=== PATIENT | female | born 1990 | race Caucasian/White ===

== ENCOUNTER 2018-10-05 08:00 | Inpatient (IN) | payer OTHER ==
[~2018-10-05] VITALS: Ht 170.2 cm; Wt 80.4 kg
[2018-10-05 08:58] VITALS: Ht 170.2 cm; Wt 80.4 kg
[2018-10-05 08:59] VITALS: BP 111/64; PULSE 64; RESP 20
[2018-10-05] MEDS ORDERED: PREN1TAB13 PO (09:01)
[2018-10-05] MEDS ORDERED: LIDOCAINE 1% (MPF) 30 ML INJ INJ PRN (09:30)
[2018-10-05] MEDS ORDERED: OXYCODONE/ASPIRIN (4.88/325) TAB PO PRN (09:30)
[2018-10-05] MEDS ORDERED: METHYLERGONOVINE 0.2 MG INJ IM PRN (09:30)
[2018-10-05] MEDS ORDERED: BUTORPHANOL 2 MG INJ IV PRN (09:30)
[2018-10-05] MEDS ORDERED: IBUPROFEN 600 MG TAB PO PRN (09:30)
[2018-10-05] MEDS ORDERED: MISOPROSTOL 200 MCG TAB PR PRN (09:30)
[2018-10-05] MEDS ORDERED: OXYTOCIN 30 UNITS/LR 500 ML IV SCH ×2 (09:30)
[2018-10-05] MEDS ORDERED: OXYTOCIN 30 UNITS/LR 500 ML IV PRN (09:30)
[2018-10-05] MEDS ORDERED: CARBOPROST 250 MCG INJ IM PRN (09:30)
[2018-10-05] MEDS ORDERED: AMPICILLIN 2 GM/NS (PMX) 100 ML IVPB ONE (10:30)
[2018-10-05] MEDS: LACTATED RINGER'S 1,000 ML IV SCH ×2 (10:44→19:03)
[2018-10-05] MEDS: MISOPROSTOL 50 MCG CAPSULE PO SCH ×2 (10:47→17:24)
[2018-10-05] MEDS: AMPICILLIN 1 GM/NS (PMX) 50 ML IVPB SCH ×3 (13:29→21:36)
[2018-10-05] MEDS ORDERED: DEXTROSE 5%-LR 1,000 ML IV PRN (18:00)
[2018-10-05] MEDS ORDERED: LACTATED RINGER'S 1,000 ML IV PRN (19:30)
--- NOTE | 2018-10-05 20:24 | HP ---
Date/Time of Note Date/Time of Note DATE: 10/05/18 TIME: 20:16 OB - History Hx of Present Free Text/Dictation 28 years old with single intrauterine at 39 weeks and 6 days with a ROSA of 10/06/2018 admitted for induction of labor for A1 gestational diabetes. She states good movement. She denies nausea, vomiting, shortness of breath, chest pain, headache, visual changes, vaginal bleeding or LOF. Risk factors: A1 gestational diabetes - Bilateral renal pyelectasis Chief Complaint: Admission for induction of labor Estimated Due Date: Oct 06, 2018 : 3 Para: 1 Spontaneous : 1 Therapeutic : 0 Care: Good Care Ultrasounds: Normal mid trimester US Obstetrical Complications: Gestational Diabetes Medical Complications: None Past Family/Social History * Past Medical, Surgical, Family and Obstetric Histories reviewed from chart. Blood Type: O+ Rubella: immune RPR/VDRL: Negative GBS Status: Positive HBsAG: Negative OB Admission Exam Vital Signs Vital Signs Vital Signs Date Temp Pulse Resp B/P (MAP) Pulse Ox O2 O2 Flow FiO2 Time Delivery Rate 10/05/18 98.1 64 20 111/64 Room Air 08:59 (80) Physical Exam HEENT: WNL Heart: Rhythm Normal Lungs: Clear Abdomen: WNL Extremities: Normal Cervical Dilatation: 1cm Effacement: 25% Station: -3 Membranes: Intact Heart Rate: 130's Accelerations: Accelerations Present Decelerations: No Decelerations Varibility: Moderate Contractions on Admission: >10 Minutes Apart Intensity: Mild Last 72 hourBlood Glucose Bedside Glucose - 72 Hours Test 10/05/18 19:55 Bedside Glucose 112 mg/dL (70-220) Last 72 hours Lab Results CBC & BMP 10/05/18 10:30 OB Assessment/Plan Other plan: 28 years old 3 para 1011 with a A1 gestational diabetes at 39 weeks and 6 days admitted for induction of labor. - FHR: No sign of metabolic acidosis- Category I - Continuous EFM, toco - CBC, blood type and screen - Analgesia options with R/B/A discussed in detail with patient - Epidural per patient request - Cytotec for induction of labor per protocol - Please see the orders - O+/Rubella: Immune - GBS: Positive-ampicillin in active phase ordered 2. A1 gestational diabetes: Check blood sugar every 4 hours latent phase and every 2 hours in active phase. Significance of 75 g 2-hour glucose test at 6-12 weeks after delivery discussed with patient. 3. Bilateral renal pyelectasis: Follow-up with ultrasound by lens grinder rough she should after delivery. Admission, procedures, expectations, risks and possible complications have been discussed in detail with the patient. Risk of vaginal delivery including but not limited to bleeding, infection, cervical laceration, placental retention, injury to fetus, blood transfusion, blood transfusion related infection, risk of anesthesia, adhesion, cervical laceration, episiotomy/laceration, possible delivery with risk of bleeding, infection, injury to other organs (bowel, bladder, ureter, vessels, nerves), injury to fetus, blood transfusion, blood transfusion related infection, risk of anesthesia, scar and hernia formation, needs for future , removal of uterus or any other indicated surgery discussed with the patient. She expressed understanding and repeats the risks. All of her questions were answered. She signed the informed consent. PHYSICIAN'S VERIFICATION OF INFORMED CONSENT The patient was counseled regarding the procedure, its indications, risks, potential complications and alternatives and any questions were answered. Consent was obtained. PLANNED PROCEDURE/TREATMENT: Vaginal delivery, episiotomy, repair of laceration possible delivery ROSELYN PEARCE Oct 05, 2018 20:24
[2018-10-06] MEDS: AMPICILLIN 1 GM/NS (PMX) 50 ML IVPB SCH ×2 (01:49→05:38)
[2018-10-06] MEDS: LACTATED RINGER'S 1,000 ML IV SCH (03:29)
[2018-10-06] MEDS ORDERED: MINERAL OIL LIGHT 10 ML VIAL TOP PRN (04:00)
[2018-10-06] MEDS: MISOPROSTOL 50 MCG CAPSULE PO SCH (04:42)
[2018-10-06] MEDS ORDERED: OXYTOCIN 30 UNITS/LR 500 ML IV SCH (06:00)
[2018-10-06] MEDS: LACTATED RINGER'S 1,000 ML IV* SCH ×2 (08:59→16:59)
[2018-10-06] MEDS: DEXTROSE 5%-LR 1,000 ML IV SCH ×2 (08:59→16:59)
--- NOTE | 2018-10-06 08:59 | LDN ---
Date/Time of Note Date/Time of Note DATE: 10/06/18 TIME: 08:55 Delivery Summary 28 years old with gestational diabetes A1 at 40 weeks delivered a viable female over second-degree laceration. Nose and mouth suctioned. There was nuchal cord x2 which released. Rest of body delivered. Cord clamped and cut after stopping pulsation. Baby given to the nurse. Placenta delivered spontaneously and intact with three-vessel cord. Laceration repaired with 2-0 Vicryl. Patient tolerated procedure well Time of delivery 08:16 Weight 8 pounds 7 ounces / 30,825 g Height 20 inches 9 at 1 minute and 9 at 5 minutes EBL 150 mL Weeks of Gestation 40 weeks Placenta Delivered: Spontaneously Meconium: none Episiotomy: No Estimated blood loss: 150 Sponge & Needle done & correct: Yes All needle counts correct: Yes Any foreign bodies felt in the: No Infant Delivery Information Sex Sex: female Apgars 1 Minute: 9 5 Minute: 9 10 Minute: 10 Suctioning Nose & mouth suctioned at chari: Yes Umbilical Cord Umbilical cord with: 3 Vessels Cord presentations: nuchal cord Nuchal cord present X: 2 Cord Blood was obtained: Yes Mother & Baby Disposition Disposition Mom & Baby to Maternity; Good: Yes ROSELYN PEARCE Oct 06, 2018 08:59
[2018-10-06] MEDS ORDERED: LANOLIN HPA 1 PKT TOP PRN (09:00)
[2018-10-06] MEDS ORDERED: BENZOCAINE 20% 56 ML SPRAY TOP PRN (09:00)
[2018-10-06] MEDS ORDERED: DIBUCAINE 1% 30 GM OINT TOP PRN (09:00)
[2018-10-06] MEDS ORDERED: ACETAMINOPHEN 325 MG TAB PO PRN (09:00)
[2018-10-06] MEDS ORDERED: OXYCODONE/ASPIRIN (4.88/325) TAB PO PRN (09:00)
[2018-10-06] MEDS ORDERED: CARBOPROST 250 MCG INJ IM PRN (09:00)
[2018-10-06] MEDS ORDERED: ZOLPIDEM 5 MG TAB PO PRN (09:00)
[2018-10-06] MEDS ORDERED: METHYLERGONOVINE 0.2 MG INJ IM PRN (09:00)
[2018-10-06] MEDS ORDERED: MISOPROSTOL 200 MCG TAB PR PRN (09:00)
[2018-10-06] MEDS ORDERED: ONDANSETRON 4 MG INJ IV PRN (09:00)
[2018-10-06] MEDS ORDERED: OXYTOCIN 30 UNITS/LR 500 ML IV PRN (09:00)
[2018-10-06] MEDS ORDERED: SENNA/DOCUSATE NA (8.6MG/50MG) TAB PO PRN (09:00)
[2018-10-06] MEDS ORDERED: MAGNESIUM HYDROXIDE 30ML CUP PO PRN (09:00)
[2018-10-06] MEDS ORDERED: DIPHENHYDRAMINE 50 MG INJ IV PRN (09:00)
[2018-10-06] MEDS ORDERED: WITCH HAZEL/GLYCERIN PAD PR PRN (09:00)
[2018-10-06 09:45] VITALS: BP 107/58; PULSE 62; RESP 18
[2018-10-06] MEDS: IBUPROFEN 600 MG TAB PO SCH ×3 (11:27→23:55)
[2018-10-06 14:58] VITALS: BP 101/55; PULSE 67
--- NOTE | 2018-10-06 18:38 | NUR ---
EOSS. PT, IS IN STABLE CONDITION FUNDUS FIRM NORMAL BLEEDING NO COMPLAINED OF PAIN OR ANY PROBLEM . UNDER OBSERVATION .
[2018-10-06 20:00] VITALS: BP 99/52; PULSE 71; RESP 18
[2018-10-07] MEDS: DEXTROSE 5%-LR 1,000 ML IV SCH ×3 (00:59→16:59)
[2018-10-07] MEDS: LACTATED RINGER'S 1,000 ML IV* SCH ×3 (00:59→16:59)
[2018-10-07 04:00] VITALS: BP 99/58; PULSE 66; RESP 17
--- NOTE | 2018-10-07 05:06 | NUR ---
EOSS: PATIENT IN STABLE CONDITION. WELL AND BONDING WELL WITH . FUNDUS FIRM AT UMBILICUS WITH SMALL AMOUNT OF LOCHIA. ABLE TO PASS GAS AND VOID. AMBULATING. AFEBRILE.
[2018-10-07] MEDS: IBUPROFEN 600 MG TAB PO SCH ×3 (06:09→17:17)
[2018-10-07 08:33] VITALS: BP 106/59; PULSE 65; RESP 18
--- NOTE | 2018-10-07 13:49 | PN ---
Date/Time of Note Date/Time of Note DATE: 10/07/18 TIME: 13:44 OB Subjective Subjective Subjective Reports decreased vaginal bleeding. Breast-feeding. Ambulating. OB Objective Objective Objective Const: GS, A&O, NAD Head: [Atraumatic] Abd: [Soft, non tender, non distended. Normal bowel sounds] fundus firm and palpable at 1 cm below the umbilcus Skin: [No petechiae or rashes] Back: [No midline or flank tenderness] Ext: [No cyanosis, or edema] Neuro: [Awake and alert] Psych: [Normal Mood and Affect] Breasts: No evidence of mastitis or fissure Laboratory Tests Test 10/07/18 06:25 White Blood Count 7.8 Red Blood Count 3.96 L Hemoglobin 11.9 L Hematocrit 35.4 L Mean Corpuscular Volume 89.4 Mean Corpuscular Hemoglobin 30.1 Mean Corpuscular Hemoglobin Concent 33.6 Red Cell Distribution Width 13.9 Platelet Count 151 Mean Platelet Volume 13.0 H Immature Granulocytes % 0.800 H Neutrophils % 66.5 Lymphocytes % 23.2 Monocytes % 8.5 Eosinophils % 0.6 Basophils % 0.4 Nucleated Red Blood Cells % 0.0 Immature Granulocytes # 0.060 H Neutrophils # 5.2 Lymphocytes # 1.8 Monocytes # 0.7 Eosinophils # 0.1 Basophils # 0.0 Nucleated Red Blood Cells # 0.0 OB Assessment/Plan Other Assessment: s/p Doing well GDM, A1. Good blood sugar control routine post care Anticipate DC home tomorrow WILLIE ELAINE MD Oct 07, 2018 13:49
[2018-10-07 16:57] VITALS: BP 107/58; PULSE 72; RESP 18
--- NOTE | 2018-10-07 18:44 | NUR ---
EOSS. PT, IS IN STABLE CONDITION . FUNDUS FIRM . NORMAL BLEEDING . NO COMPLAINED OF PAIN OR ANY PROBLEM . UNDER OBSERVATION .
[2018-10-07 19:40] VITALS: BP 98/59; PULSE 71; RESP 18
[2018-10-08] MEDS: IBUPROFEN 600 MG TAB PO SCH ×3 (00:12→12:13)
[2018-10-08] MEDS: DEXTROSE 5%-LR 1,000 ML IV SCH (00:59)
[2018-10-08] MEDS: LACTATED RINGER'S 1,000 ML IV* SCH (00:59)
[2018-10-08 04:35] VITALS: BP 95/53; PULSE 72; RESP 18
--- NOTE | 2018-10-08 06:49 | NUR ---
EOSS. PT. STABLE. NO RESP. DISTRESS NOTED. NO COMPLAINT OF PAIN OR ANY DISTRESS NOTED. BONDING WITH HER BABY. MOVING TOWARDS EXPECTED GOALS.
[2018-10-08 07:50] VITALS: BP 110/56; PULSE 65; RESP 16
[2018-10-08] MEDS ORDERED: MEASLES,MUMPS,RUBELLA VACCINE INJ SC* ONE (09:00)
[2018-10-08] MEDS ORDERED: DIPHTH/TET/ACEL PERTUSS (ADULT) 0.5 ML VIAL IM* ONE (09:00)
--- NOTE | 2018-10-08 17:28 | DS ---
Date/Time of Note Date/Time of Note DATE: 10/08/18 TIME: 17:27 Obstetrical Discharge Record Final Diagnosis Final Diagnosis: Term delivered Vaginal Delivery Obstetrical Delivery: Spontaneous, Laceration, Repaired Complications Augmentation: No Induction: No Rupture of Membranes: No Condition on Discharge Physical Assessment Last Vitals: vss afebrile Voiding: Yes Bowel Movement: No Breast: Soft, non-tender Fundus: Firm Abdomen and Incision: n/a Episiotomy: n/a only laceration Calf Tenderness: No Patient Condition: Stable LYDIA JOSEPH MD Oct 08, 2018 17:28
--- NOTE | 2018-10-08 17:30 | PD.PPDC ---
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
--- NOTE | 2018-10-08 17:52 | NUR ---
PATIENT WENT HOME WITH THE BABY, BOTH STABLE. D/C INSTRUCTIONS GIVEN. VERBALIZED UNDERSTANDING.
== END 2018-10-08 17:50 | disposition home or self-care (01) | DRG 807 ==
LOC: L-D 08:23 → PP1 10-06 10:24
PROVIDERS: ADMIT Obstetrics & Gynecology; ATTEND Obstetrics & Gynecology
PROC: 10E0XZZ Delivery of Products of Conception, External Approach (ICD-10-PCS; principal; 2018-10-06)
PROC: 0KQM0ZZ Repair Perineum Muscle, Open Approach (ICD-10-PCS; 2018-10-06)
DX: O24.429 Gestational diabetes mellitus in childbirth, unspecified control (principal); Z37.0 Single live birth; O48.0 Post-term pregnancy; Z3A.40 40 weeks gestation of pregnancy; O69.81X0 Labor and delivery complicated by cord around neck, without compression, not applicable or unspecified; O70.1 Second degree perineal laceration during delivery
CPT/HCPCS: 76815; 82947; 82962; 85025; 85610; 85730; 86592; 86850; 86900; 86901; 90686; J0290; J0595; J2590; J7120; J7121